=== PATIENT | female | born 2000 | race Caucasian/White ===

== ENCOUNTER 2018-02-04 10:13 | Emergency (ER) | payer OTHER ==
[~2018-02-04] VITALS: Ht 165.1 cm; Wt 43.5 kg
[2018-02-04] MEDS ORDERED: SODIUM CHLORIDE 0.9% 1000ML 1,000 ML IV STA (10:35)
[2018-02-04] MEDS ORDERED: ONDANSETRON HCL INJ 2 MG/ML VIAL IV ONE (11:15)
[2018-02-04] MEDS ORDERED: MORPHINE SULFATE INJ 4 MG/ML INJ IV ONE (11:15)
[2018-02-04 11:21] LABS: BASOPHILS % 0.1 % (0.0-1.0); EOSINOPHILS % 0.1 % (0.0-6.0); HEMATOCRIT 38.4 % (34.2-44.1); HEMOGLOBIN 13.1 g/dL (12.0-16.0); LYMPHOCYTES # (AUTO) 0.6 (1.0-3.2); LYMPHOCYTES % 6.3 % (18.0-39.1); MEAN CORPUSCULAR HEMOGLOBIN 29.8 pg (28-32); MEAN CORPUSCULAR HGB CONC 34.1 g/dL (31-35); MEAN CORPUSCULAR VOLUME 87.3 fL (81-99); MONOCYTES # (AUTO) 0.7 (0.2-0.8); MONOCYTES % 7.4 % (4.4-11.3); NEUTROPHILS # (AUTO) 8.4 (2.1-6.9); NEUTROPHILS % 85.8 % (38.7-80.0); PLATELET COUNT 296 x10e3/uL (140-360); RED CELL DISTRIBUTION WIDTH 11.9 % (11.7-14.4)
[2018-02-04 11:42] LABS: ALANINE AMINOTRANSFERASE 12 IU/L (0-55); ALBUMIN 4.3 g/dL (3.5-5.0); ALBUMIN/GLOBULIN RATIO 1.4 (0.8-2.0); ALKALINE PHOSPHATASE 47 IU/L (40-150); ANION GAP 16.2 mmol/L (8-16); BLOOD UREA NITROGEN 16 mg/dL (7-26); BUN/CREATININE RATIO 24 (6-25); CALCIUM 9.4 mg/dL (8.4-10.2); CARBON DIOXIDE 23 mmol/L (22-29); CHLORIDE 102 mmol/L (98-107); CREATININE, SERUM 0.68 mg/dL (0.57-1.11); EST GLOMERULAR FILTRATION RATE > 60 ML/MIN (60-); GLUCOSE 91 mg/dL (74-118); POTASSIUM 4.2 mmol/L (3.5-5.1); SODIUM 137 mmol/L (136-145)
[2018-02-04 11:46] LABS: BILIRUBIN,URINE NEGATIVE (NEGATIVE); CLARITY,URINE HAZY (CLEAR); COLOR,URINE YELLOW (YELLOW); KETONES,URINE NEGATIVE (NEGATIVE); NITRITE,URINE NEGATIVE (NEGATIVE); PROTEIN,URINE DIPSTICK NEGATIVE (NEGATIVE); URINE UROBILINOGEN 0.2 mg/dL (0.2 - 1)
[2018-02-04 11:47] LABS: LEUKOCYTE ESTERASE ,URINE 2+ (NEGATIVE)
[2018-02-04 11:48] LABS: PREGNANCY TEST, URINE NEGATIVE (NEGATIVE)
[2018-02-04 11:59] LABS: BACTERIA,URINE MODERATE /HPF; EPITHELIAL CELLS,URINE MODERATE /LPF; RBC,URINE 0-5 /HPF (0-5)
[2018-02-04] MEDS ORDERED: CEFTRIAXONE SOD 1 GM VIAL IV ONE (12:15)
[2018-02-04] MEDS ORDERED: CEFTRIAXONE SOD 1 GM/NS 50 ML 50 ML IV ONE (13:00)
--- NOTE | 2018-02-04 13:23 | NUR ---
PT RESTING COMFORTABLY AT THIS TIME DENIES ANY DISTRESS
--- NOTE | 2018-02-04 13:34 | Diagnostic Imaging Report ---
EXAM: Abdomen 2 Views INDICATION: ^r/o constipation ^[id number] ^[id number] COMPARISON: None FINDINGS: Nonobstructive bowel gas pattern. No signs of pneumoperitoneum. Moderate colonic stool burden. No acute osseous abnormality. Lung bases are clear. IMPRESSION: 1. Nonobstructive bowel gas pattern. 2. Moderate colonic stool burden. Signed by: Dr. Hector Mcmahan MD on 02/04/2018 1:31 PM
[2018-02-04 13:48] VITALS: BP 97/60
== END 2018-02-04 14:05 | disposition home or self-care (01) ==
LOC: ER 10:13
DX: R10.84 Generalized abdominal pain (principal); R11.2 Nausea with vomiting, unspecified; N39.0 Urinary tract infection, site not specified
CPT/HCPCS: 36415; 74019; 80053; 81001; 81025; 85025; 87086; 99284; J0696; J2270; J2405; J7030

== ENCOUNTER 2024-12-09 10:43 | Emergency (ER) | payer OTHER ==
[~2024-12-09] VITALS: Ht 157.5 cm; Wt 48.1 kg
[2024-12-09] MEDS: METHYLPREDNISOLONE SOD SUCC IV ONE (12:06)
[2024-12-09] MEDS: SODIUM CHLORIDE 0.9% 1000ML 1,000 ML IV STA (12:06)
[2024-12-09] MEDS: DIPHENHYDRAMINE HCL INJ 50 MG/ML VIAL IV ONE (12:06)
[2024-12-09] MEDS: SODIUM CHLORIDE 0.9% IV ONE (12:06)
[2024-12-09 12:36] LABS: BASOPHILS % 0.6 % (0.0-1.0); EOSINOPHILS % 1.1 % (0.0-6.0); LYMPHOCYTES % 26.8 % (18.0-39.1); MONOCYTES % 10.4 % (4.4-11.3); NEUTROPHILS % 60.9 % (38.7-80.0); RED CELL DISTRIBUTION WIDTH 11.9 % (11.7-14.4)
[2024-12-09 13:05] LABS: INR 1.07
[2024-12-09 13:17] LABS: EST GLOMERULAR FILTRATION RATE 124 ML/MIN (>=60)
[2024-12-09] MEDS ORDERED: IOPAMIDOL 370 MG/ML 100 ML INFUS..BTL INJ ONE (13:31)
[2024-12-09 14:10] LABS: LEUKOCYTE ESTERASE ,URINE SMALL (NEGATIVE); PROTEIN,URINE DIPSTICK NEGATIVE (NEGATIVE)
[2024-12-09 14:11] LABS: URINE UROBILINOGEN 0.2 mg/dL (0.2 - 1)
[2024-12-09 14:22] LABS: EPITHELIAL CELLS,URINE FEW /LPF
[2024-12-09] MEDS ORDERED: CEFDINIR300 MG PO (16:21)
[2024-12-09] MEDS ORDERED: PYRIDIUM100 MG PO (16:21)
[2024-12-09] MEDS ORDERED: DICYCLOMINE HCL20 MG PO (16:21)
[2024-12-09 16:30] VITALS: PULSE 88; RESP 16; TEMP 98.7; O2SAT 100
== END 2024-12-09 16:31 | disposition home or self-care (01) ==
LOC: ER 11:20
DX: R10.31 Right lower quadrant pain (principal); N39.0 Urinary tract infection, site not specified; J45.909 Unspecified asthma, uncomplicated
CPT/HCPCS: 36415; 74177; 80053; 81001; 83735; 84702; 85025; 85610; 85730; 99284; J1200; J2919; J7030; J7050; Q9967